=== PATIENT | female | born 1965 | race Caucasian/White ===

== ENCOUNTER 2020-09-22 16:45 | Outpatient (REF) | payer MEDICAID, SELFPAY ==
--- NOTE | 2020-09-22 | CT_ITS ---
EXAMINATION: CT CHEST WITHOUT CONTRAST CLINICAL INFORMATION: SOB, wheezing and asthma COMPARISON: None TECHNIQUE: Multidetector volumetric CT imaging of the chest was done. Axial MIP volume rendering provided. Sagittal and coronal reformatted images were obtained. This CT examination was performed using dose optimization techniques as appropriate, variously including the following: *Automated exposure control *Adjustment of mA and/or kV according to patient size (this includes techniques or standardized protocols for targeted exams where dose is matched to indication/reason for exam; i.e. extremities or head) *Use of iterative reconstruction technique DLP: 119 mGy-cm FINDINGS: BUDGET AND POLICY ANALYST: Well inflated lungs LUNGS: There is a 2 mm partially calcified nodule left lower lobe axial image 323/5 and a 2 mm nodule right upper lobe axial image 191/5. The lungs are well-expanded and clear of acute pneumonic consolidation. There is no evidence of mass or groundglass density. MEDIASTINUM: The heart size and the great vessels are normal caliber. Central trachea and the bronchi widely patent. The thyroid lobes are symmetrical and normal. There is no pericardial effusion. No abnormal size lymph nodes or mass seen. PLEURA: There is no pleural effusion. No pleural mass or thickening. AXILLA: No lymphadenopathy. UPPER ABDOMEN: Visualized liver, spleen, pancreas and bilateral adrenal glands are unremarkable. OSSEOUS STRUCTURES: There is no lytic or sclerotic process. There is mild ventral spondylosis. CT/CT chest wo con IMPRESSION: 2 mm nodules, likely benign. No acute consolidation or mass seen.
== END 2020-09-22 16:46 | disposition home or self-care (01) ==
LOC: HO.CT 16:45
PROVIDERS: Visit Provider Hospitalist
DX: J45.40 Moderate persistent asthma, uncomplicated (principal); R06.02 Shortness of breath
CPT/HCPCS: 71250

== ENCOUNTER → 2020-09-29 11:14 | Outpatient (BNVA) | payer MEDICAID, SELFPAY | PROVIDERS: PCP Internal Medicine; Visit Provider Hospitalist | DX: Z76.89 Persons encountering health services in other specified circumstances (principal) ==

== ENCOUNTER → 2020-11-30 11:02 | Outpatient (BNVA) | payer MEDICAID, SELFPAY | PROVIDERS: PCP Internal Medicine; Visit Provider Hospitalist | DX: R91.1 Solitary pulmonary nodule (principal); R06.00 Dyspnea, unspecified; R06.2 Wheezing | CPT/HCPCS: 99212 ==

== ENCOUNTER 2020-12-14 09:21 | Day surgery (SDC) | payer MEDICAID, SELFPAY ==
[2020-11-03 12:27] VITALS: BMI 21.6
--- NOTE | 2020-11-03 12:50 | P.CONAN_ITS ---
HPI - Anesthesia Eval Consult details Narrative: 55yo F for Bronchoscopy Fiberoptic Progressing SOB/Dyspnea at rest since 10/2019. New pulm rx's without significant improvement. Records requested from [facility] Past Medical History Medical History (Updated 11/03/20 @ 12:58 by Magali Farrell) Allergy to environmental factors Dyspnea Hypothyroid Pulmonary nodule Wheezing Family History Family History (Updated 07/09/20 @ 13:34 by Jami Gerber LPN) Family/Other No problems noted. Social History Social History (Updated 09/29/20 @ 11:19 by Sandhya Márquez MA) Smoking Status: Never smoker Second Hand Smoke Exposure: No Use of substances other than those prescribed or required for medical reasons: No Advance Directives: No Advance Directives Information Provided: No Advance Directives on File: No Meds Allergies Allergy/AdvReac Type Severity Reaction Status Date / Time prednisone [PREDNISONE] AdvReac Intermediate BEHAVORAL Verified 09/29/20 11:34 Home Medications Medication Instructions Recorded Confirmed Type albuterol sulfate 90 mcg/actuation 2 puff INHALATION Q6H PRN 09/29/20 09/29/20 History aerosol inhaler budesonide 0.5 mg/2 mL suspension 0.5 mg INHALATION BID 09/29/20 09/29/20 History for nebulization bupropion HCl 300 mg 24 hr tablet, 300 mg PO QAM 09/29/20 09/29/20 History extended release estradiol 1 mg tablet 1 mg PO DAILY 09/29/20 09/29/20 History levothyroxine 50 mcg capsule 50 mcg PO DAILY 09/29/20 09/29/20 History montelukast 10 mg tablet 10 mg PO DAILY 09/29/20 09/29/20 History Exam Exam Date and Time: November 03, 2020 1250 Height,Weight and Vital Signs: Height 5 ft 5 in Weight 58.967 kg Assessment and Plan Assessment Anesthesia Assessment: Chart Reviewed
--- NOTE | 2020-12-13 08:41 | HO.ANESPROP2 ---
Documented by User: Magali Romeney 12/13/20 08:43 HPI - Anesthesia Eval Consult details Narrative: 55yo F for Bronchoscopy Fiberoptic Progressing SOB/Dyspnea at rest since 10/2019. New pulm rx's without significant improvement. PMFSH Active Problems Active Problems: All Active Problems (Updated 11/30/20 @ 18:58 by Rafael Gonzalez MD) Pulmonary nodule (Acute) Dyspnea (Acute) Wheezing (Acute) Allergy to environmental factors (Acute) Past Medical History Medical History (Updated 11/30/20 @ 18:58 by Rafael Gonzalez MD) Allergy to environmental factors Dyspnea Hypothyroid Pulmonary nodule Wheezing Family History Family History (Updated 07/09/20 @ 13:34 by Jami Gerber LPN) Family/Other No problems noted. Social History Social History (Updated 09/29/20 @ 11:19 by Sandhya Márquez MA) Smoking Status: Never smoker Second Hand Smoke Exposure: No Use of substances other than those prescribed or required for medical reasons: No Advance Directives: No Advance Directives Information Provided: No Advance Directives on File: No Meds Allergies Allergy/AdvReac Type Severity Reaction Status Date / Time prednisone [PREDNISONE] AdvReac Intermediate BEHAVORAL Verified 11/30/20 18:56 Home Medications Medication Instructions Recorded Confirmed Last Taken Type albuterol sulfate 90 mcg/actuation 2 puff INHALATION Q6H PRN 09/29/20 12/07/20 Unknown History aerosol inhaler budesonide 0.5 mg/2 mL suspension 0.5 mg INHALATION BID 09/29/20 12/07/20 Unknown History for nebulization bupropion HCl 300 mg 24 hr tablet, 300 mg PO QAM 09/29/20 12/07/20 12/14/20 History extended release estradiol 1 mg tablet 1 mg PO DAILY 09/29/20 12/07/20 Unknown History levothyroxine 50 mcg capsule 50 mcg PO DAILY 09/29/20 12/07/20 12/14/20 History montelukast 10 mg tablet 10 mg PO DAILY 09/29/20 12/07/20 Unknown History Exam Exam Date and Time: December 13, 2020 0841 Height,Weight and Vital Signs: Height 5 ft 5 in Weight 58.967 kg Pertinent Lab Results Pertinent Lab Results: Laboratory Tests 05/04/20 14:45 WBC 6.5 Hgb 12.9 Hct 39.2 Plt Count 171 Assessment and Plan Assessment Anesthesia Assessment: Chart Reviewed Documented by User: Emmanuelle Tidwell 12/14/20 10:05 PMFSH Past Medical History Medical History (Updated 11/30/20 @ 18:58 by Rafael Gonzalez MD) Allergy to environmental factors Dyspnea Hypothyroid Pulmonary nodule Wheezing Family History Family History (Updated 07/09/20 @ 13:34 by Jami Gerber LPN) Family/Other No problems noted. Social History Social History (Updated 09/29/20 @ 11:19 by Sandhya Márquez MA) Smoking Status: Never smoker Second Hand Smoke Exposure: No Use of substances other than those prescribed or required for medical reasons: No Advance Directives: No Advance Directives Information Provided: No Advance Directives on File: No Meds Allergies Allergy/AdvReac Type Severity Reaction Status Date / Time prednisone [PREDNISONE] AdvReac Intermediate BEHAVORAL Verified 11/30/20 18:56 Home Medications Medication Instructions Recorded Confirmed Last Taken Type albuterol sulfate 90 mcg/actuation 2 puff INHALATION Q6H PRN 09/29/20 12/07/20 Unknown History aerosol inhaler budesonide 0.5 mg/2 mL suspension 0.5 mg INHALATION BID 09/29/20 12/07/20 Unknown History for nebulization bupropion HCl 300 mg 24 hr tablet, 300 mg PO QAM 09/29/20 12/07/20 12/14/20 History extended release estradiol 1 mg tablet 1 mg PO DAILY 09/29/20 12/07/20 Unknown History levothyroxine 50 mcg capsule 50 mcg PO DAILY 09/29/20 12/07/20 12/14/20 History montelukast 10 mg tablet 10 mg PO DAILY 09/29/20 12/07/20 Unknown History Exam Airway Mallampati Class: II TM Dist: >3cm Neck ROM: Full Heart: RRR Lungs: CTacBL Assessment and Plan Assessment Anesthesia Assessment: Anesthesia Plan Discussed and Chart Reviewed Final Anesthetic Review NPO: Yes (Sip water with meds) ASA Class: II Final Preanesthetic Review: No Changes in Pt Med Stat and Consent Obtained/Reviewed Patient Risk: Intermediate Procedure Risk: Intermediate Anesthetic Plan Anesthetic Plan: MAC: Disposition: Standard PACU
[2020-12-14] VITALS (9 sets, daily range): BP systolic 123–164; BP diastolic 69–92; PULSE 76–97; RESP 16–20; TEMP 36.2–36.7; O2SAT 99–100
[2020-12-14] MEDS: Lactated Ringers 1,000 ML 100 ML IVCONT (10:15)
--- NOTE | 2020-12-14 11:07 | MHC.SHP ---
Pre-Procedural Eval Section B Chief Complaint: solitary pulmonary nodule Allergies: Allergies Allergy/AdvReac Type Severity Reaction Status Date / Time prednisone [PREDNISONE] AdvReac Intermediate BEHAVORAL Verified 11/30/20 18:56 Plan I have reviewed the history and physical and performed a pertinent physical examination on my patient. No changes have occurred unless specified.
--- NOTE | 2020-12-14 11:16 | HO.ANESPROP2 ---
[facility] Active Problems Active Problems: All Active Problems (Updated 11/30/20 @ 18:58 by Rafael Gonzalez MD) Pulmonary nodule (Acute) Dyspnea (Acute) Wheezing (Acute) Allergy to environmental factors (Acute) Past Medical History Medical History (Updated 11/30/20 @ 18:58 by Rafael Gonzalez MD) Allergy to environmental factors Dyspnea Hypothyroid Pulmonary nodule Wheezing Family History Family History (Updated 07/09/20 @ 13:34 by Jami Gerber LPN) Family/Other No problems noted. Social History Social History (Updated 09/29/20 @ 11:19 by Sandhya Márquez MA) Smoking Status: Never smoker Second Hand Smoke Exposure: No Use of substances other than those prescribed or required for medical reasons: No Advance Directives: No Advance Directives Information Provided: No Advance Directives on File: No Meds Allergies Allergy/AdvReac Type Severity Reaction Status Date / Time prednisone [PREDNISONE] AdvReac Intermediate BEHAVORAL Verified 11/30/20 18:56 Active Medications: Current Medications Generic Name Dose Route Start Last Admin Trade Name Freq PRN Reason Stop Dose Admin Lactated Ringer's 1,000 mls @ 100 mls/hr 12/14/20 10:00 12/14/20 10:15 Lr IVCONT 100 mls/hr .Q10H MARIA Administration Ondansetron HCl 4 mg 12/14/20 09:56 Ondansetron Hcl 4 Mg/2 Ml Vial IVPUSH ONCE PRN Nausea and Vomiting Home Medications Medication Instructions Recorded Confirmed Last Taken Type albuterol sulfate 90 mcg/actuation 2 puff INHALATION Q6H PRN 09/29/20 12/07/20 Unknown History aerosol inhaler budesonide 0.5 mg/2 mL suspension 0.5 mg INHALATION BID 09/29/20 12/07/20 Unknown History for nebulization bupropion HCl 300 mg 24 hr tablet, 300 mg PO QAM 09/29/20 12/07/20 12/14/20 History extended release estradiol 1 mg tablet 1 mg PO DAILY 09/29/20 12/07/20 Unknown History levothyroxine 50 mcg capsule 50 mcg PO DAILY 09/29/20 12/07/20 12/14/20 History montelukast 10 mg tablet 10 mg PO DAILY 09/29/20 12/07/20 Unknown History Exam Exam Date and Time: December 14, 2020 1116 Height,Weight and Vital Signs: Height 5 ft 5 in Weight 58.967 kg Last Vital Signs Temp 98.1 F 12/14/20 10:00 Pulse 80 12/14/20 10:00 Resp 16 12/14/20 10:00 BP 139/79 12/14/20 10:00 Pulse Ox 100 12/14/20 10:00 Airway Mallampati Class: II TM Dist: >3cm Neck ROM: Full Heart: RRR Lungs: CTA BL Assessment and Plan Assessment Anesthesia Assessment: Anesthesia Plan Discussed and Chart Reviewed Final Anesthetic Review NPO: Yes (Sip water with meds) ASA Class: III Final Preanesthetic Review: No Changes in Pt Med Stat and Consent Obtained/Reviewed Patient Risk: Intermediate Procedure Risk: Intermediate Anesthetic Plan Anesthetic Plan: GA Disposition: Standard PACU
[2020-12-14] MEDS: ondansetron HCL 4 MG/2 ML VIAL IVPUSH (12:01)
[2020-12-14 14:25] LABS: Lymphocytes Bronchial 5 %; Monocytes Bronchial 3 %; Neutrophils Bronchial 31 %; Other Bronchial 61 %; RBC Bronchial Washing 282 MM*3; WBC Bronchial Washing 229 MM*3
--- NOTE | 2020-12-17 18:58 | OP_ITS ---
SURGEON: Rafael Gonzalez MD PREOPERATIVE DIAGNOSIS: POSTOPERATIVE DIAGNOSIS: PROCEDURE PERFORMED: ESTIMATED BLOOD LOSS: COMPLICATIONS: ANESTHESIA: The patient did have an LMA. ASSISTANTS: SPECIMENS: INDICATION: Asthma and cough refractory to medical therapy. ASA CLASSIFICATION: 3. PREOPERATIVE DIAGNOSES: Cough, shortness of breath, asthma. POSTOPERATIVE DIAGNOSES: Bronchitis, asthma. DESCRIPTION OF PROCEDURE: After the patient was adequately sedated, the flexible digital bronchoscope was inserted over the LMA to the level of the vocal cords to the larynx. The vocal cords moved symmetric to the midline. Indeed, the patient appeared to be having some degree of microaspiration with some seepage of oral secretions from the trachea. After instilling additional lidocaine, the bronchoscope was inserted via the vocal cords to the level of the trachea. Tracheal mucosa appeared to be normal and the trachea appeared to be intact, taken without any evidence of any malacia. No evidence of any stenosis. The patient did have some scattered mucoid secretions. The patient also had some erythema of the mucosa suggesting some degree of bronchitis, this is throughout. The bronchoscope was navigated to the entire tracheobronchial tree. No endobronchial lesions or masses noted. No need for any biopsies nor any evidence of bleeding. The bronchoscope was navigated to the right lower lobe and cytologic brush was introduced into that area. The bronchoscope was navigated to the left upper lobe and a micro brush was introduced and sent to the appropriate location. Bronchial washings were collected throughout the airways both for cytology and microbiology. After that, the bronchoscope was wedged into the right middle lobe, where additional bronchial washings were sent for cell count differential. The patient tolerated the procedure well. Vital signs were stable throughout the procedure. INTERPRETATION: Evidence of bronchitis with mucus plugging. No endobronchial lesions or masses. No evidence of any tracheobronchomalacia, status post bronchial washings and brushings. Rafael Gonzalez MD MR/MODL / [id number]
== END 2020-12-14 13:35 | disposition home or self-care (01) ==
PROVIDERS: PCP Internal Medicine; Visit Provider Hospitalist
PROC: 0BJ08ZZ Inspection of Tracheobronchial Tree, Via Natural or Artificial Opening Endoscopic (ICD-10-PCS; CPT 31622; principal; 2020-12-14 11:10)
DX: R91.1 Solitary pulmonary nodule (principal); J40 Bronchitis, not specified as acute or chronic
CPT/HCPCS: 31623; 87071; 87102; 87116; 87205; 88112; 89051; J0171; J2250; J2405; J3010

== ENCOUNTER 2021-08-31 12:59 | Outpatient (REF) | payer MEDICAID, SELFPAY ==
--- NOTE | ~2021-08-31 | CT_ITS ---
EXAMINATION: CT CHEST WITHOUT CONTRAST CLINICAL INFORMATION: Solitary pulmonary nodule COMPARISON: Previous chest x-ray December [address] September 2020 TECHNIQUE: Multidetector volumetric CT imaging of the chest was done. Axial MIP volume rendering provided. Sagittal and coronal reformatted images were obtained. This CT examination was performed using dose optimization techniques as appropriate, variously including the following: *Automated exposure control *Adjustment of mA and/or kV according to patient size (this includes techniques or standardized protocols for targeted exams where dose is matched to indication/reason for exam; i.e. extremities or head) *Use of iterative reconstruction technique DLP: 122 mGy-cm FINDINGS: LUNGS: There are small pulmonary nodules or micronodules. Largest nodules measure 2 x 3 mm in the right upper lobe axial image 150 series 6 and left lower lobe axial image 282 series 6. The lungs are otherwise clear. No evidence of emphysema interstitial lung disease or bronchiectasis is seen seen. No endobronchial or endotracheal lesion is seen. MEDIASTINUM: There is prominent soft tissue seen in the anterior mediastinum measuring 1.5 x 2.2 cm axial image 22 series 3. This may be related to the thymus. This appears low in attenuation, Hounsfield units without contrast measuring up to 10. There is a tiny anterior pericardial effusion that is stable. The mediastinum is otherwise normal. PLEURA: There is no pleural effusion. No pleural mass or thickening. AXILLA: No lymphadenopathy. UPPER ABDOMEN: Unremarkable. OSSEOUS STRUCTURES: There are mild degenerative changes of the spine. CT/CT chest wo con IMPRESSION: Stable small pulmonary nodules or micronodules. Stable prominent soft tissue in the anterior mediastinum, question related to the thymus.
== END 2021-08-31 13:00 | disposition home or self-care (01) ==
LOC: HO.CT 12:59
PROVIDERS: PCP Internal Medicine; Visit Provider Hospitalist
DX: R91.1 Solitary pulmonary nodule (principal)
CPT/HCPCS: 71250